=== PATIENT | female | born 1980 | race African-American/Black ===

== ENCOUNTER → 2021-01-04 | Outpatient (CLI) | payer MEDICARE ==
[~2021-01-04] MED LIST: ACYCLOVIR800 MG PO; GEODON80 MG PO; LISINOPRIL-HCT1 EAC2 PO; METFORMIN HCL500 MG PO; MIRTAZAPINE15 MG PO; MONTELUKAST SOD10 MG PO; MULTI-VITAMIN1 EACH PO; NEURONTIN400 MG PO; OXCARBAZEPINE150 MG PO; PRILOSEC OTC20 MG PO; PROPRANOLOL HCL10 MG PO; SULINDAC200 MG PO; TRICOR145 MG PO; VENTOLIN HFA18 GM INH; VITAMIN D PO; ZYRTEC10 M3 PO
[2021-01-04 09:13] LABS: BASOPHILS % 0.5 % (0.0-1.0); EOSINOPHILS # (AUTO) 0.3 (0.0-0.4); EOSINOPHILS % 2.9 % (0.0-6.0); HEMATOCRIT 39.4 % (34.2-44.1); HEMOGLOBIN 12.8 g/dL (12.0-16.0); LYMPHOCYTES # (AUTO) 2.3 (1.0-3.2); MEAN CORPUSCULAR HEMOGLOBIN 28.8 pg (28-32); MEAN CORPUSCULAR HGB CONC 32.5 g/dL (31-35); MEAN CORPUSCULAR VOLUME 88.5 fL (81-99); MONOCYTES # (AUTO) 0.9 (0.2-0.8); MONOCYTES % 10.5 % (4.4-11.3); NEUTROPHILS % 58.5 % (38.7-80.0); PLATELET COUNT 349 x10e3/uL (140-360); RED BLOOD COUNT 4.45 x10e6/uL (3.6-5.1); RED CELL DISTRIBUTION WIDTH 14.6 % (11.7-14.4)
[2021-01-04 09:33] LABS: ANION GAP 14.8 mmol/L (8-16); BLOOD UREA NITROGEN 10 mg/dL (7-26); BUN/CREATININE RATIO 11 (6-25); CALCIUM 9.1 mg/dL (8.4-10.2); CARBON DIOXIDE 24 mmol/L (22-29); CHLORIDE 106 mmol/L (98-107); CREATININE, SERUM 0.89 mg/dL (0.57-1.11); EST GLOMERULAR FILTRATION RATE > 60 ML/MIN (60-); GLUCOSE 101 mg/dL (74-118); POTASSIUM 3.8 mmol/L (3.5-5.1); SODIUM 141 mmol/L (136-145)
== END ==
LOC: DX 16:00 → EDSTATUS 01-08 09:00
PROVIDERS: ATTEND Surgery
DX: Z01.812 Encounter for preprocedural laboratory examination (principal); Z20.822 Contact with and (suspected) exposure to COVID-19; Z01.818 Encounter for other preprocedural examination; E66.01 Morbid (severe) obesity due to excess calories; Z68.44 Body mass index [BMI] 60.0-69.9, adult; I10 Essential (primary) hypertension
CPT/HCPCS: 36415; 80048; 85025; 93005; U0002

== ENCOUNTER 2021-02-12 10:01 | Inpatient (IN) | payer MEDICARE ==
[2021-02-08 09:16] LABS: BASOPHILS % 0.4 % (0.0-1.0); EOSINOPHILS # (AUTO) 0.1 (0.0-0.4); EOSINOPHILS % 0.6 % (0.0-6.0); HEMATOCRIT 40.6 % (34.2-44.1); LYMPHOCYTES # (AUTO) 3.4 (1.0-3.2); LYMPHOCYTES % 31.2 % (18.0-39.1); MEAN CORPUSCULAR HEMOGLOBIN 28.9 pg (28-32); MEAN CORPUSCULAR VOLUME 90.2 fL (81-99); MONOCYTES # (AUTO) 1.1 (0.2-0.8); MONOCYTES % 9.8 % (4.4-11.3); NEUTROPHILS # (AUTO) 6.3 (2.1-6.9); NEUTROPHILS % 57.2 % (38.7-80.0); PLATELET COUNT 286 x10e3/uL (140-360); RED CELL DISTRIBUTION WIDTH 15.3 % (11.7-14.4)
[2021-02-08 09:36] LABS: ANION GAP 14.9 mmol/L (8-16); BLOOD UREA NITROGEN 22 mg/dL (7-26); BUN/CREATININE RATIO 24 (6-25); CALCIUM 9.1 mg/dL (8.4-10.2); CARBON DIOXIDE 28 mmol/L (22-29); CHLORIDE 102 mmol/L (98-107); CREATININE, SERUM 0.93 mg/dL (0.57-1.11); EST GLOMERULAR FILTRATION RATE > 60 ML/MIN (60-); GLUCOSE 103 mg/dL (74-118); POTASSIUM 3.9 mmol/L (3.5-5.1); SODIUM 141 mmol/L (136-145)
[~2021-02-12] VITALS: Ht 152.4 cm; Wt 138.8 kg
[~2021-02-12 10:01] MED LIST changes: +ACETAMINOPHEN 1000 MG/100 ML 100 ML IV ONE; +LIDOCAINE HCL (LTA) 4 ML SOLN ONE; +SCOPOLAMINE 1.5 MG PATCH ONE; +SUGAMMADEX SODIUM 200 MG/2 ML VIAL IV ONE
[2021-02-12] MEDS ORDERED: BUPIVACAINE 0.25% 30ML SDV ONE (10:37)
[2021-02-12] MEDS ORDERED: LEVOFLOXACIN 500MG/D5W 100ML 100 ML IV ONE (10:50)
[2021-02-12] MEDS ORDERED: ROCURONIUM BROMIDE 10 MG/ML 5ML VIAL IV ONE (13:10)
[2021-02-12] MEDS ORDERED: SEVOFLURANE INHAL SOLN 250 ML PEN BTL ONE (13:10)
[2021-02-12] MEDS ORDERED: LIDOCAINE HCL 2% LOCAL INJ 5 ML SDV VIAL INJ ONE (13:10)
[2021-02-12] MEDS ORDERED: ONDANSETRON HCL INJ 2MG/ML 2ML 2 MG/ML VIAL ONE ×2 (13:10→15:26)
[2021-02-12] MEDS ORDERED: LIDOCAINE HCL 2% JELLY 5 ML TUBE ONE (13:10)
[2021-02-12] MEDS ORDERED: PROPOFOL IV EMULSION 10 MG/ML 20 ML VIAL ONE (13:10)
[2021-02-12] MEDS ORDERED: FIBRIN FROZEN 2 ML SPRAY.GEL TOP ONE (14:38)
[2021-02-12] MEDS: SODIUM CHLORIDE 0.9% 1000ML 1,000 ML IV SCH ×2 (15:30→19:57)
[2021-02-12] MEDS ORDERED: HYDROCODONE/APAP 7.5MG-325MG 1 EA TAB PO PRN (15:30)
[2021-02-12] MEDS ORDERED: METOCLOPRAMIDE HCL 10 MG/2ML VIAL ONE (15:55)
[2021-02-12] MEDS: ALBUTEROL/IPRATROPIUM 3 ML NEB NEB SCH ×2 (17:15→21:45)
[2021-02-12] MEDS ORDERED: AZITHROMYCIN 500MG/NS 250 ML 250 ML IV ONE (17:30)
[2021-02-12] MEDS ORDERED: FENTANYL CITRATE/PF 100MCG/2 ML INJ ONE (17:33)
[2021-02-12] MEDS ORDERED: PROMETHAZINE HCL (IM) 25 MG/ML VIAL IM ONE (18:01)
[2021-02-12 18:52] VITALS: BP 124/71
[2021-02-12] MEDS: MORPHINE SULFATE INJ 2 MG/ML SYR IV PRN (19:57)
[2021-02-12] MEDS: ONDANSETRON HCL INJ 2MG/ML 2ML 2 MG/ML VIAL IV PRN (19:57)
[2021-02-12 20:00] VITALS: BP 118/78
[2021-02-12 21:08] VITALS: BP 118/78
[2021-02-12 22:12] VITALS: BP 118/78
[2021-02-12] MEDS: ENOXAPARIN SOD INJ 40 MG/0.4 ML SYR SC SCH (22:49)
[2021-02-13] VITALS: BP 128/91
[2021-02-13] MEDS: MORPHINE SULFATE INJ 2 MG/ML SYR IV PRN ×3 (02:03→08:52)
[2021-02-13] MEDS: ONDANSETRON HCL INJ 2MG/ML 2ML 2 MG/ML VIAL IV PRN (02:03)
[2021-02-13] MEDS: ALBUTEROL/IPRATROPIUM 3 ML NEB NEB SCH ×3 (02:30→14:01)
[2021-02-13 04:00] VITALS: BP 137/82
[2021-02-13] MEDS: SODIUM CHLORIDE 0.9% 1000ML 1,000 ML IV SCH (06:24)
[2021-02-13] MEDS ORDERED: PROMETHAZINE 12.5MG/ NACL 0.9% 12.5 MG/50 ML BAG IV PRN ×2 (06:45→12:00)
[2021-02-13 07:06] LABS: BASOPHILS % 0.1 % (0.0-1.0); EOSINOPHILS # (AUTO) 0.1 (0.0-0.4); EOSINOPHILS % 0.5 % (0.0-6.0); HEMATOCRIT 39.2 % (34.2-44.1); HEMOGLOBIN 12.6 g/dL (12.0-16.0); LYMPHOCYTES # (AUTO) 1.4 (1.0-3.2); LYMPHOCYTES % 14.7 % (18.0-39.1); MEAN CORPUSCULAR HEMOGLOBIN 29.7 pg (28-32); MEAN CORPUSCULAR HGB CONC 32.1 g/dL (31-35); MEAN CORPUSCULAR VOLUME 92.5 fL (81-99); MONOCYTES # (AUTO) 1.1 (0.2-0.8); MONOCYTES % 11.5 % (4.4-11.3); NEUTROPHILS # (AUTO) 6.8 (2.1-6.9); NEUTROPHILS % 72.8 % (38.7-80.0); PLATELET COUNT 241 x10e3/uL (140-360); RED BLOOD COUNT 4.24 x10e6/uL (3.6-5.1)
[2021-02-13 07:25] LABS: ALANINE AMINOTRANSFERASE 46 IU/L (0-55); ALBUMIN 3.4 g/dL (3.5-5.0); ALBUMIN/GLOBULIN RATIO 0.9 (0.8-2.0); ALKALINE PHOSPHATASE 39 IU/L (40-150); ANION GAP 13.8 mmol/L (8-16); BLOOD UREA NITROGEN 10 mg/dL (7-26); BUN/CREATININE RATIO 12 (6-25); CARBON DIOXIDE 23 mmol/L (22-29); CHLORIDE 106 mmol/L (98-107); CREATININE, SERUM 0.83 mg/dL (0.57-1.11); EST GLOMERULAR FILTRATION RATE > 60 ML/MIN (60-); GLUCOSE 118 mg/dL (74-118); MAGNESIUM 1.7 MG/DL (1.3-2.1); PHOSPHORUS 2.6 MG/DL (2.3-4.7); POTASSIUM 3.8 mmol/L (3.5-5.1); SODIUM 139 mmol/L (136-145)
[2021-02-13] MEDS ORDERED: TYLENOL # 31 EA PO (08:07)
[2021-02-13] MEDS ORDERED: ALBUTEROL SULFATE HFA 8GM INHALATION AEROSOL INH PRN (08:15)
[2021-02-13 08:31] VITALS: BP_SYST 113; BP_SYST 121; BP_DIAS 61; BP_DIAS 80
[2021-02-13 08:42] VITALS: BP 113/61
[2021-02-13] MEDS ORDERED: CHOLECALCIFEROL 1,000 UNIT TAB PO SCH (09:00)
[2021-02-13] MEDS ORDERED: LORATADINE 10 MG TAB PO SCH (09:00)
[2021-02-13] MEDS ORDERED: GABAPENTIN 300 MG CAP PO SCH (09:00)
[2021-02-13] MEDS ORDERED: PROPRANOLOL HCL 40 MG TAB PO SCH (09:00)
[2021-02-13] MEDS ORDERED: OXCARBAZEPINE 300 MG TAB PO SCH (09:00)
[2021-02-13] MEDS ORDERED: PANTOPRAZOLE SOD 40 MG TABEC PO SCH (09:00)
[2021-02-13] MEDS ORDERED: MULTIVITAMINS/MINERALS TAB PO SCH (09:00)
[2021-02-13] MEDS ORDERED: LISINOPRIL 10 MG TAB PO SCH (09:00)
[2021-02-13] MEDS ORDERED: METFORMIN HCL 500 MG TAB PO SCH (09:00)
[2021-02-13] MEDS ORDERED: MONTELUKAST SODIUM 10 MG TAB PO SCH (09:00)
[2021-02-13] MEDS ORDERED: ZIPRASIDONE 20 MG CAP PO SCH (09:30)
[2021-02-13] MEDS ORDERED: ONDANSETRON HCL 4 MG ORAL DISINTEGRATING TAB PO PRN (10:00)
[2021-02-13] MEDS: ENOXAPARIN SOD INJ 40 MG/0.4 ML SYR SC SCH (10:43)
[2021-02-13 11:48] VITALS: BP 134/88
[2021-02-13] MEDS ORDERED: FENOFIBRATE 160 MG TAB PO SCH (21:00)
[2021-02-13] MEDS ORDERED: MIRTAZAPINE 15 MG TAB PO SCH (21:00)
== END 2021-02-13 15:50 | disposition home or self-care (01) | DRG 621 ==
LOC: OR 10:01 → PACU V 15:32 → IMCU 18:46
PROVIDERS: ADMIT Internal Medicine; ATTEND Internal Medicine
PROC: 0DB64Z3 Excision of Stomach, Percutaneous Endoscopic Approach, Vertical (ICD-10-PCS; principal; 2021-02-12 12:30)
DX: E66.01 Morbid (severe) obesity due to excess calories (principal); E11.9 Type 2 diabetes mellitus without complications; Z68.44 Body mass index [BMI] 60.0-69.9, adult; F31.9 Bipolar disorder, unspecified; F41.8 Other specified anxiety disorders; I11.9 Hypertensive heart disease without heart failure; J45.909 Unspecified asthma, uncomplicated; R11.0 Nausea; Z20.822 Contact with and (suspected) exposure to COVID-19; G47.33 Obstructive sleep apnea (adult) (pediatric); K21.9 Gastro-esophageal reflux disease without esophagitis
CPT/HCPCS: 36415; 71045; 80048; 80053; 81025; 82948; 83735; 84100; 85025; 94640; 96360; J1650; J1956; J2001; J2270; J2405; J2550; J2765; J3010; J7030; U0002

== ENCOUNTER 2022-06-24 07:17 | Inpatient (IN) | payer MEDICARE ==
[2022-06-20 09:35] LABS: BASOPHILS % 0.5 % (0.0-1.0); EOSINOPHILS # (AUTO) 0.1 (0.0-0.4); EOSINOPHILS % 1.2 % (0.0-6.0); HEMATOCRIT 39.7 % (34.2-44.1); LYMPHOCYTES # (AUTO) 2.2 (1.0-3.2); LYMPHOCYTES % 27.6 % (18.0-39.1); MEAN CORPUSCULAR HEMOGLOBIN 30.7 pg (28-32); MEAN CORPUSCULAR HGB CONC 32.7 g/dL (31-35); MEAN CORPUSCULAR VOLUME 93.9 fL (81-99); MONOCYTES # (AUTO) 0.7 (0.2-0.8); NEUTROPHILS # (AUTO) 4.8 (2.1-6.9); NEUTROPHILS % 61.4 % (38.7-80.0); PLATELET COUNT 349 x10e3/uL (140-360); RED BLOOD COUNT 4.23 x10e6/uL (3.6-5.1); RED CELL DISTRIBUTION WIDTH 14.1 % (11.7-14.4)
[2022-06-20 09:53] LABS: ANION GAP 12.8 mmol/L (8-16); CALCIUM 9.3 mg/dL (8.4-10.2); CREATININE, SERUM 0.86 mg/dL (0.57-1.11); POTASSIUM 3.8 mmol/L (3.5-5.1)
[~2022-06-24] VITALS: Ht 149.9 cm; Wt 111.6 kg
[~2022-06-24 07:17] MED LIST changes: -ACETAMINOPHEN 1000 MG/100 ML 100 ML IV ONE; +ACYCLOVIR200 MG PO; +BACLOFEN10 MG PO; +IRON PO; +LEVOFLOXACIN 500MG/D5W 100ML 100 ML IV ONE; -LIDOCAINE HCL (LTA) 4 ML SOLN ONE; -SCOPOLAMINE 1.5 MG PATCH ONE; -SUGAMMADEX SODIUM 200 MG/2 ML VIAL IV ONE; +SYMBICORT 80-10.2 GM INH; +TYLENOL # 31 EA PO; +VIT B12 PO
[2022-06-24] MEDS ORDERED: BUPIVACAINE HCL 0.25% 10ML MPF VIAL INJ ONE ×2 (08:04)
[2022-06-24] MEDS ORDERED: HYDROCODONE/APAP 7.5MG-325MG 1 EA TAB PO PRN (09:00)
[2022-06-24] MEDS ORDERED: FIBRIN FROZEN 2 ML SPRAY.GEL TOP ONE (09:00)
[2022-06-24] MEDS ORDERED: ONDANSETRON HCL INJ 2MG/ML 2ML 2 MG/ML VIAL IV PRN (09:00)
[2022-06-24] MEDS ORDERED: FENTANYL CITRATE/PF 100MCG/2 ML INJ ONE (11:17)
[2022-06-24] MEDS ORDERED: ONDANSETRON HCL INJ 2MG/ML 2ML 2 MG/ML VIAL ONE ×2 (11:17→13:12)
[2022-06-24] MEDS ORDERED: METOCLOPRAMIDE HCL 10 MG/2ML VIAL ONE (11:39)
[2022-06-24] MEDS ORDERED: PROMETHAZINE HCL (IM) 25 MG/ML VIAL IM ONE (11:39)
[2022-06-24] MEDS ORDERED: Morphine 2mg Syringe 2 MG/ML SYR ONE (11:40)
[2022-06-24] MEDS: SCOPOLAMINE 1 MG PATCH TOP SCH (12:09)
[2022-06-24] MEDS: SODIUM CHLORIDE 0.9% 1000ML 1,000 ML IV SCH ×2 (12:09→19:21)
[2022-06-24 12:13] VITALS: BP 112/71
[2022-06-24 12:18] VITALS: BP 112/71
[2022-06-24 12:25] VITALS: BP 112/71
[2022-06-24] MEDS ORDERED: ALBUTEROL SULFATE HFA 8GM INHALATION AEROSOL INH PRN (12:45)
[2022-06-24] MEDS ORDERED: FERROUS SULFAT325 MG PO (12:49)
[2022-06-24] MEDS ORDERED: LIDOCAINE HCL 2% LOCAL INJ 5 ML SDV VIAL INJ ONE (13:12)
[2022-06-24] MEDS ORDERED: DEXAMETHASONE SOD PHOS INJ 4 MG/ML SDV ONE (13:12)
[2022-06-24] MEDS ORDERED: POVIDONE IODINE 0.05% 0.05 % ML PO ONE (13:12)
[2022-06-24] MEDS ORDERED: GLYCOPYRROLATE INJ 0.2 MG/ML VIAL ONE (13:12)
[2022-06-24] MEDS ORDERED: ROCURONIUM BROMIDE 10 MG/ML 5ML VIAL IV ONE (13:12)
[2022-06-24] MEDS ORDERED: SEVOFLURANE INHAL SOLN 250 ML PEN BTL ONE (13:12)
[2022-06-24] MEDS ORDERED: PROPOFOL IV EMULSION 10 MG/ML 20 ML VIAL ONE (13:12)
[2022-06-24] MEDS ORDERED: NEOSTIGMINE 1 MG/ML 10ML VIAL ONE (13:12)
[2022-06-24] MEDS: BACLOFEN 10 MG TAB PO SCH ×3 (13:22→22:55)
[2022-06-24] MEDS: ACYCLOVIR 200 MG CAP PO SCH ×2 (13:22→22:57)
[2022-06-24] MEDS: GABAPENTIN 300 MG CAP PO SCH ×2 (13:22→22:57)
[2022-06-24] MEDS ORDERED: TRAMADOL HCL 50 MG TAB PO PRN (13:30)
[2022-06-24] MEDS: Morphine 2mg Syringe 2 MG/ML SYR IV PRN ×3 (13:59→22:52)
[2022-06-24 15:13] VITALS: BP 120/73
[2022-06-24] MEDS: ZIPRASIDONE 20 MG CAP PO SCH (16:08)
[2022-06-24] MEDS: OXCARBAZEPINE 300 MG TAB PO SCH (16:09)
[2022-06-24] MEDS ORDERED: PROPRANOLOL HCL 40 MG TAB PO SCH (17:00)
[2022-06-24] MEDS ORDERED: ZIPRASIDONE HCL 80 MG PO SCH (17:00)
[2022-06-24] MEDS: ONDANSETRON HCL INJ 2MG/ML 2ML 2 MG/ML VIAL IV PRN (18:51)
[2022-06-24] MEDS: BUDESONIDE/FORMOTEROL FUMARATE 80/4.5MCG 6.9 GM INH AEROSOL IH SCH (19:00)
[2022-06-24 20:00] VITALS: BP 123/78
[2022-06-24] MEDS: PROPRANOLOL HCL 40 MG TAB PO SCH (22:51)
[2022-06-24] MEDS: FENOFIBRATE 145 MG TAB PO SCH (22:55)
[2022-06-24] MEDS: ENOXAPARIN SOD INJ 40 MG/0.4 ML SYR SC SCH (22:58)
[2022-06-24] MEDS: MIRTAZAPINE 15 MG TAB PO SCH (22:59)
[2022-06-25] VITALS (7 sets, daily range): BP systolic 111–135; BP diastolic 59–89
[2022-06-25] MEDS: ONDANSETRON HCL INJ 2MG/ML 2ML 2 MG/ML VIAL IV PRN ×2 (02:43→07:54)
[2022-06-25] MEDS: Morphine 2mg Syringe 2 MG/ML SYR IV PRN ×2 (02:43→07:54)
[2022-06-25] MEDS: SODIUM CHLORIDE 0.9% 1000ML 1,000 ML IV SCH ×3 (02:44→21:00)
[2022-06-25 06:12] LABS: BASOPHILS % 0.3 % (0.0-1.0); EOSINOPHILS # (AUTO) 0.1 (0.0-0.4); EOSINOPHILS % 0.8 % (0.0-6.0); HEMATOCRIT 38.6 % (34.2-44.1); HEMOGLOBIN 12.6 g/dL (12.0-16.0); LYMPHOCYTES # (AUTO) 2.3 (1.0-3.2); LYMPHOCYTES % 21.7 % (18.0-39.1); MEAN CORPUSCULAR HEMOGLOBIN 30.3 pg (28-32); MEAN CORPUSCULAR HGB CONC 32.6 g/dL (31-35); MEAN CORPUSCULAR VOLUME 92.8 fL (81-99); MONOCYTES # (AUTO) 1.1 (0.2-0.8); MONOCYTES % 10.1 % (4.4-11.3); NEUTROPHILS # (AUTO) 7.1 (2.1-6.9); NEUTROPHILS % 66.9 % (38.7-80.0); PLATELET COUNT 324 x10e3/uL (140-360); RED BLOOD COUNT 4.16 x10e6/uL (3.6-5.1); RED CELL DISTRIBUTION WIDTH 13.7 % (11.7-14.4)
[2022-06-25] MEDS: PANTOPRAZOLE SOD 40 MG TABEC PO SCH (06:29)
[2022-06-25] MEDS: BUDESONIDE/FORMOTEROL FUMARATE 80/4.5MCG 6.9 GM INH AEROSOL IH SCH ×2 (07:00→19:25)
[2022-06-25 07:03] LABS: ALBUMIN/GLOBULIN RATIO 0.9 (0.8-2.0); CALCIUM 8.2 mg/dL (8.4-10.2); CREATININE, SERUM 0.74 mg/dL (0.57-1.11); MAGNESIUM 1.6 MG/DL (1.3-2.1); PHOSPHORUS 2.9 MG/DL (2.3-4.7)
[2022-06-25] MEDS: LEVALBUTEROL HCL SOLN NEBU 0.63 MG/3 ML NEB INH SCH ×3 (07:30→19:25)
[2022-06-25] MEDS ORDERED: POTASSIUM CHLORIDE 10MEQ EA PO ONE ×2 (07:45→09:45)
[2022-06-25] MEDS ORDERED: ACETAMINOPHEN 325 MG TAB PO PRN (08:30)
[2022-06-25] MEDS: OXCARBAZEPINE 300 MG TAB PO SCH ×2 (09:00→16:39)
[2022-06-25] MEDS: GABAPENTIN 300 MG CAP PO SCH ×3 (09:00→21:00)
[2022-06-25] MEDS: LORATADINE 10 MG TAB PO SCH (09:00)
[2022-06-25] MEDS: PROPRANOLOL HCL 40 MG TAB PO SCH ×2 (09:00→21:00)
[2022-06-25] MEDS ORDERED: METOCLOPRAMIDE HCL 10 MG/2ML VIAL IV ONE (09:00)
[2022-06-25] MEDS: ACYCLOVIR 200 MG CAP PO SCH ×3 (09:00→21:00)
[2022-06-25] MEDS: CHOLECALCIFEROL 1,000 UNIT TAB PO SCH (09:00)
[2022-06-25] MEDS: HYDROCHLOROTHIAZIDE 25 MG TAB PO SCH (09:00)
[2022-06-25] MEDS: BACLOFEN 10 MG TAB PO SCH ×4 (09:00→21:00)
[2022-06-25] MEDS: MONTELUKAST SODIUM 10 MG TAB PO SCH (09:00)
[2022-06-25] MEDS: MULTIVITAMINS/MINERALS TAB PO SCH (09:00)
[2022-06-25] MEDS: FERROUS SULFATE 325 MG TAB PO SCH (09:00)
[2022-06-25] MEDS ORDERED: NON-FORMULARY MEDICATION (Omeprazole Magnesium (Prilosec Otc) 40 MG) PO SCH (09:00)
[2022-06-25] MEDS ORDERED: NON-FORMULARY MEDICATION ([Vitamin D] 2,000 UNITS) PO SCH (09:00)
[2022-06-25] MEDS: LISINOPRIL 10 MG TAB PO SCH (09:00)
[2022-06-25] MEDS: ZIPRASIDONE 20 MG CAP PO SCH ×2 (09:00→16:37)
[2022-06-25] MEDS: ENOXAPARIN SOD INJ 40 MG/0.4 ML SYR SC SCH ×2 (09:05→16:34)
[2022-06-25] MEDS: POTASSIUM CHLORIDE 20MEQ/100ML 100 ML IV SCH ×2 (09:30→13:17)
[2022-06-25] MEDS: METOCLOPRAMIDE HCL 10 MG/2ML VIAL IV PRN ×2 (13:17→20:08)
[2022-06-25 16:29] LABS: BASOPHILS % 0.3 % (0.0-1.0); EOSINOPHILS # (AUTO) 0.1 (0.0-0.4); EOSINOPHILS % 1.3 % (0.0-6.0); HEMATOCRIT 40.9 % (34.2-44.1); HEMOGLOBIN 13.2 g/dL (12.0-16.0); LYMPHOCYTES # (AUTO) 2.1 (1.0-3.2); MEAN CORPUSCULAR HEMOGLOBIN 30.6 pg (28-32); MEAN CORPUSCULAR HGB CONC 32.3 g/dL (31-35); MEAN CORPUSCULAR VOLUME 94.7 fL (81-99); MONOCYTES # (AUTO) 1.2 (0.2-0.8); MONOCYTES % 11.5 % (4.4-11.3); NEUTROPHILS # (AUTO) 6.9 (2.1-6.9); NEUTROPHILS % 66.6 % (38.7-80.0); PLATELET COUNT 293 x10e3/uL (140-360); RED BLOOD COUNT 4.32 x10e6/uL (3.6-5.1)
[2022-06-25] MEDS: HYDROMORPHONE 1MG/1ML INJ IV PRN ×2 (17:57→21:16)
[2022-06-25] MEDS: FENOFIBRATE 145 MG TAB PO SCH (21:00)
[2022-06-25] MEDS: MIRTAZAPINE 15 MG TAB PO SCH (21:00)
[2022-06-26] VITALS (7 sets, daily range): BP systolic 108–146; BP diastolic 71–85
[2022-06-26] MEDS: LEVALBUTEROL HCL SOLN NEBU 0.63 MG/3 ML NEB INH SCH ×5 (00:30→23:00)
[2022-06-26] MEDS: SODIUM CHLORIDE 0.9% 1000ML 1,000 ML IV SCH ×3 (00:38→17:00)
[2022-06-26] MEDS: METOCLOPRAMIDE HCL 10 MG/2ML VIAL IV PRN ×2 (02:01→08:13)
[2022-06-26] MEDS: HYDROMORPHONE 1MG/1ML INJ IV PRN (03:06)
[2022-06-26 05:04] LABS: BASOPHILS % 0.4 % (0.0-1.0); EOSINOPHILS # (AUTO) 0.1 (0.0-0.4); EOSINOPHILS % 1.2 % (0.0-6.0); HEMATOCRIT 36.7 % (34.2-44.1); LYMPHOCYTES # (AUTO) 1.9 (1.0-3.2); LYMPHOCYTES % 19.1 % (18.0-39.1); MEAN CORPUSCULAR HEMOGLOBIN 30.4 pg (28-32); MEAN CORPUSCULAR HGB CONC 32.7 g/dL (31-35); MEAN CORPUSCULAR VOLUME 92.9 fL (81-99); MONOCYTES % 10.6 % (4.4-11.3); NEUTROPHILS # (AUTO) 6.7 (2.1-6.9); NEUTROPHILS % 68.3 % (38.7-80.0); PLATELET COUNT 297 x10e3/uL (140-360); RED BLOOD COUNT 3.95 x10e6/uL (3.6-5.1); RED CELL DISTRIBUTION WIDTH 13.7 % (11.7-14.4)
[2022-06-26 05:24] LABS: ALBUMIN 2.8 g/dL (3.5-5.0); ALBUMIN/GLOBULIN RATIO 0.7 (0.8-2.0); ANION GAP 12.2 mmol/L (8-16); CALCIUM 7.9 mg/dL (8.4-10.2); CREATININE, SERUM 0.69 mg/dL (0.57-1.11); POTASSIUM 3.2 mmol/L (3.5-5.1)
[2022-06-26] MEDS: BUDESONIDE/FORMOTEROL FUMARATE 80/4.5MCG 6.9 GM INH AEROSOL IH SCH ×3 (07:00→20:40)
[2022-06-26] MEDS: PANTOPRAZOLE SOD 40 MG TABEC PO SCH (07:30)
[2022-06-26] MEDS ORDERED: PROMETHAZINE HCL 25 MG TAB PO ONE ×2 (09:00→09:30)
[2022-06-26] MEDS: GABAPENTIN 300 MG CAP PO SCH ×4 (09:00→22:37)
[2022-06-26] MEDS: LORATADINE 10 MG TAB PO SCH (09:00)
[2022-06-26] MEDS: OXCARBAZEPINE 300 MG TAB PO SCH ×2 (09:00→17:00)
[2022-06-26] MEDS: BACLOFEN 10 MG TAB PO SCH ×5 (09:00→22:32)
[2022-06-26] MEDS: CHOLECALCIFEROL 1,000 UNIT TAB PO SCH (09:00)
[2022-06-26] MEDS ORDERED: POTASSIUM CHLORIDE 10MEQ EA PO ONE ×2 (09:00→11:00)
[2022-06-26] MEDS: ENOXAPARIN SOD INJ 40 MG/0.4 ML SYR SC SCH ×2 (09:00→17:00)
[2022-06-26] MEDS: PROPRANOLOL HCL 40 MG TAB PO SCH ×3 (09:00→22:34)
[2022-06-26] MEDS: FERROUS SULFATE 325 MG TAB PO SCH (09:00)
[2022-06-26] MEDS: MONTELUKAST SODIUM 10 MG TAB PO SCH (09:00)
[2022-06-26] MEDS: MULTIVITAMINS/MINERALS TAB PO SCH (09:00)
[2022-06-26] MEDS: ZIPRASIDONE 20 MG CAP PO SCH ×2 (09:00→17:00)
[2022-06-26] MEDS: HYDROCHLOROTHIAZIDE 25 MG TAB PO SCH (09:00)
[2022-06-26] MEDS: LISINOPRIL 10 MG TAB PO SCH (09:00)
[2022-06-26] MEDS: ACYCLOVIR 200 MG CAP PO SCH ×4 (09:00→22:35)
[2022-06-26] MEDS ORDERED: METOCLOPRAMIDE HCL 10 MG/2ML VIAL IV ONE (10:30)
[2022-06-26] MEDS ORDERED: IOPAMIDOL 370 MG/ML 100 ML INFUS..BTL INJ ONE (11:40)
[2022-06-26] MEDS ORDERED: POTASSIUM CHLORIDE 20MEQ/100ML 200 ML IV ONE (12:00)
[2022-06-26] MEDS: TRAMADOL HCL 50 MG TAB PO PRN ×2 (12:18→22:35)
[2022-06-26] MEDS ORDERED: BUPIVACAINE 0.25% 30ML SDV ONE (16:45)
[2022-06-26] MEDS ORDERED: SUGAMMADEX SODIUM 200 MG/2 ML VIAL IV ONE (17:53)
[2022-06-26] MEDS ORDERED: ALBUTEROL SULF 0.083% NEB SOLN 3 ML NEB ONE (18:01)
[2022-06-26] MEDS ORDERED: FENTANYL CITRATE/PF 100MCG/2 ML INJ ONE (18:06)
[2022-06-26] MEDS ORDERED: FUROSEMIDE INJ 10 MG/ML 4 ML VIAL IV ONE (19:50)
[2022-06-26] MEDS: PROMETHAZINE 12.5MG/ NACL 0.9% 12.5 MG/50 ML BAG IV PRN (20:00)
[2022-06-26] MEDS: MIRTAZAPINE 15 MG TAB PO SCH ×2 (21:00→22:36)
[2022-06-26] MEDS: FENOFIBRATE 145 MG TAB PO SCH ×2 (21:00→22:36)
[2022-06-26] MEDS: METHYLPREDNISOLONE SOD SUCC 40 MG/ML VIAL 1ML IV SCH (22:34)
[2022-06-26] MEDS ORDERED: FAMOTIDINE 20 MG/2 ML VIAL IV STA (23:32)
[2022-06-26] MEDS ORDERED: FAMOTIDINE 20 MG/2 ML VIAL IV ONE (23:48)
[2022-06-27] VITALS: BP 124/79
[2022-06-27] MEDS: LEVALBUTEROL HCL SOLN NEBU 0.63 MG/3 ML NEB INH SCH ×5 (00:05→14:22)
[2022-06-27] MEDS: METHYLPREDNISOLONE SOD SUCC 40 MG/ML VIAL 1ML IV SCH ×4 (00:07→18:18)
[2022-06-27] MEDS: PROMETHAZINE 12.5MG/ NACL 0.9% 12.5 MG/50 ML BAG IV PRN (01:15)
[2022-06-27 04:00] VITALS: BP 143/94
[2022-06-27 04:52] LABS: BASOPHILS % 0.2 % (0.0-1.0); HEMATOCRIT 36.3 % (34.2-44.1); HEMOGLOBIN 12.2 g/dL (12.0-16.0); LYMPHOCYTES # (AUTO) 0.4 (1.0-3.2); LYMPHOCYTES % 3.5 % (18.0-39.1); MEAN CORPUSCULAR HGB CONC 33.6 g/dL (31-35); MEAN CORPUSCULAR VOLUME 89.2 fL (81-99); MONOCYTES # (AUTO) 0.3 (0.2-0.8); NEUTROPHILS # (AUTO) 11.5 (2.1-6.9); NEUTROPHILS % 93.7 % (38.7-80.0); PLATELET COUNT 307 x10e3/uL (140-360); RED BLOOD COUNT 4.07 x10e6/uL (3.6-5.1); RED CELL DISTRIBUTION WIDTH 13.8 % (11.7-14.4)
[2022-06-27] MEDS: SODIUM CHLORIDE 0.9% 1000ML 1,000 ML IV SCH ×2 (05:04→18:24)
[2022-06-27 05:21] LABS: ALANINE AMINOTRANSFERASE 44 IU/L (0-55); ALBUMIN/GLOBULIN RATIO 0.8 (0.8-2.0); ALKALINE PHOSPHATASE 34 IU/L (40-150); ANION GAP 16.1 mmol/L (8-16); BLOOD UREA NITROGEN < 5 mg/dL (7-26); CALCIUM 8.1 mg/dL (8.4-10.2); CARBON DIOXIDE 25 mmol/L (22-29); CHLORIDE 99 mmol/L (98-107); GLUCOSE 145 mg/dL (74-118); POTASSIUM 3.1 mmol/L (3.5-5.1); SODIUM 137 mmol/L (136-145)
[2022-06-27 05:23] LABS: BUN/CREATININE RATIO 7 (6-25)
[2022-06-27] MEDS: TRAMADOL HCL 50 MG TAB PO PRN (06:24)
[2022-06-27] MEDS: BUDESONIDE/FORMOTEROL FUMARATE 80/4.5MCG 6.9 GM INH AEROSOL IH SCH (06:39)
[2022-06-27] MEDS: PANTOPRAZOLE SOD 40 MG TABEC PO SCH (07:30)
[2022-06-27 07:59] VITALS: BP 132/88
[2022-06-27] MEDS ORDERED: POTASSIUM CHLORIDE 20MEQ/100ML 200 ML IV ONE (08:00)
[2022-06-27] MEDS: LISINOPRIL 10 MG TAB PO SCH (08:43)
[2022-06-27] MEDS: BACLOFEN 10 MG TAB PO SCH ×3 (08:43→18:00)
[2022-06-27] MEDS: GABAPENTIN 300 MG CAP PO SCH ×2 (08:43→15:00)
[2022-06-27] MEDS: LORATADINE 10 MG TAB PO SCH (08:43)
[2022-06-27] MEDS: ZIPRASIDONE 20 MG CAP PO SCH ×2 (08:43→17:00)
[2022-06-27] MEDS: FERROUS SULFATE 325 MG TAB PO SCH (08:43)
[2022-06-27] MEDS: MULTIVITAMINS/MINERALS TAB PO SCH (08:43)
[2022-06-27] MEDS: PROPRANOLOL HCL 40 MG TAB PO SCH (08:43)
[2022-06-27] MEDS: ACYCLOVIR 200 MG CAP PO SCH ×2 (08:44→15:00)
[2022-06-27] MEDS: CHOLECALCIFEROL 1,000 UNIT TAB PO SCH (08:44)
[2022-06-27] MEDS: OXCARBAZEPINE 300 MG TAB PO SCH ×2 (08:44→17:00)
[2022-06-27] MEDS: MONTELUKAST SODIUM 10 MG TAB PO SCH (08:44)
[2022-06-27 08:45] VITALS: BP 132/88
[2022-06-27] MEDS: ENOXAPARIN SOD INJ 40 MG/0.4 ML SYR SC SCH ×2 (09:40→17:53)
[2022-06-27 11:49] VITALS: BP 125/62
[2022-06-27] MEDS: SCOPOLAMINE 1 MG PATCH TOP SCH (14:04)
[2022-06-27 16:56] VITALS: BP 124/77
[2022-06-27] MEDS ORDERED: SODIUM CHLORIDE 0.9% 250ML 250 ML ONE (17:35)
== END 2022-06-27 18:58 | disposition home or self-care (01) | DRG 619 ==
LOC: OR 07:17 → PACU V 10:53 → MED/SURG 11:58 → UNDODISIN 06-25 12:00
PROVIDERS: ADMIT Internal Medicine; ATTEND Internal Medicine
PROC: 0DB64Z3 Excision of Stomach, Percutaneous Endoscopic Approach, Vertical (ICD-10-PCS; principal; 2022-06-24 08:54)
PROC: 0WUF4JZ Supplement Abdominal Wall with Synthetic Substitute, Percutaneous Endoscopic Approach (ICD-10-PCS; 2022-06-25)
PROC: 02HV33Z Insertion of Infusion Device into Superior Vena Cava, Percutaneous Approach (ICD-10-PCS; 2022-06-25)
DX: E66.01 Morbid (severe) obesity due to excess calories (principal); J18.9 Pneumonia, unspecified organism; K43.6 Other and unspecified ventral hernia with obstruction, without gangrene; Z68.43 Body mass index [BMI] 50.0-59.9, adult; J20.9 Acute bronchitis, unspecified; J45.909 Unspecified asthma, uncomplicated; I11.9 Hypertensive heart disease without heart failure; Z20.822 Contact with and (suspected) exposure to COVID-19; Z79.51 Long term (current) use of inhaled steroids; F31.9 Bipolar disorder, unspecified; Q05.9 Spina bifida, unspecified; Z87.891 Personal history of nicotine dependence; Z88.5 Allergy status to narcotic agent; Z91.018 Allergy to other foods; Z88.0 Allergy status to penicillin; Z98.84 Bariatric surgery status; E11.9 Type 2 diabetes mellitus without complications; E87.6 Hypokalemia
CPT/HCPCS: 0223U; 36415; 71045; 74177; 80048; 80053; 81025; 82948; 83605; 83735; 83880; 84100; 85025; 87040; 93005; 94640; 94799; C1713; C1781; J0456; J0696; J1100; J1170; J1650; J1940; J1956; J2001; J2270; J2405; J2550; J2710; J2765; J2920; J3010; J3480; J7030; J7050; Q9967

== ENCOUNTER 2022-09-04 08:22 | Observation (INO) | payer MEDICARE ==
[~2022-09-04] VITALS: Ht 149.9 cm; Wt 104.8 kg
[~2022-09-04 08:22] MED LIST changes: +FERROUS SULFAT325 MG PO; -LEVOFLOXACIN 500MG/D5W 100ML 100 ML IV ONE
[2022-09-04] MEDS ORDERED: SODIUM CHLORIDE 0.9% 1000ML 1,000 ML IV STA (08:24)
[2022-09-04] MEDS ORDERED: ONDANSETRON HCL INJ 2MG/ML 2ML 2 MG/ML VIAL IV STA (08:24)
[2022-09-04 09:02] LABS: CLARITY,URINE CLOUDY (CLEAR); COLOR,URINE YELLOW (YELLOW)
[2022-09-04 09:03] LABS: KETONES,URINE TRACE (NEGATIVE); LEUKOCYTE ESTERASE ,URINE SMALL (NEGATIVE); NITRITE,URINE NEGATIVE (NEGATIVE); PROTEIN,URINE DIPSTICK NEGATIVE (NEGATIVE); URINE UROBILINOGEN 1 mg/dL (0.2 - 1)
[2022-09-04 09:16] LABS: BACTERIA,URINE MANY /HPF; EPITHELIAL CELLS,URINE MANY /LPF; WBC,URINE (MAN) >50 /HPF (0-5)
[2022-09-04 09:28] LABS: BASOPHILS % 0.4 % (0.0-1.0); EOSINOPHILS # (AUTO) 0.3 (0.0-0.4); EOSINOPHILS % 2.5 % (0.0-6.0); HEMATOCRIT 40.1 % (34.2-44.1); HEMOGLOBIN 12.5 g/dL (12.0-16.0); LYMPHOCYTES # (AUTO) 2.1 (1.0-3.2); LYMPHOCYTES % 20.7 % (18.0-39.1); MEAN CORPUSCULAR HEMOGLOBIN 29.6 pg (28-32); MEAN CORPUSCULAR HGB CONC 31.2 g/dL (31-35); MONOCYTES # (AUTO) 0.8 (0.2-0.8); MONOCYTES % 7.9 % (4.4-11.3); NEUTROPHILS # (AUTO) 6.9 (2.1-6.9); NEUTROPHILS % 68.2 % (38.7-80.0); PLATELET COUNT 309 x10e3/uL (140-360); RED BLOOD COUNT 4.22 x10e6/uL (3.6-5.1); RED CELL DISTRIBUTION WIDTH 13.5 % (11.7-14.4)
[2022-09-04 09:51] LABS: ALANINE AMINOTRANSFERASE 36 IU/L (0-55); ALBUMIN 3.4 g/dL (3.5-5.0); ALBUMIN/GLOBULIN RATIO 0.9 (0.8-2.0); ALKALINE PHOSPHATASE 74 IU/L (40-150); ANION GAP 14.7 mmol/L (8-16); BLOOD UREA NITROGEN 10 mg/dL (7-26); BUN/CREATININE RATIO 11 (6-25); CALCIUM 9.2 mg/dL (8.4-10.2); CARBON DIOXIDE 28 mmol/L (22-29); CHLORIDE 103 mmol/L (98-107); CREATINE KINASE 57 IU/L (29-168); CREATININE, SERUM 0.89 mg/dL (0.57-1.11); GLUCOSE 100 mg/dL (74-118); POTASSIUM 3.7 mmol/L (3.5-5.1); SODIUM 142 mmol/L (136-145)
[2022-09-04 09:52] LABS: INR 0.9
[2022-09-04 10:12] LABS: LIPASE 34 U/L (8-78)
[2022-09-04] MEDS ORDERED: Morphine 4mg INJECTION 4 MG/ML INJ IV PRN (11:00)
[2022-09-04] MEDS ORDERED: ONDANSETRON HCL INJ 2MG/ML 2ML 2 MG/ML VIAL IV PRN ×2 (11:00→22:00)
[2022-09-04] MEDS: SODIUM CHLORIDE 0.9% 1000ML 1,000 ML IV SCH ×2 (11:00→20:41)
[2022-09-04] MEDS ORDERED: IOPAMIDOL 370 MG/ML 100 ML INFUS..BTL INJ ONE ×2 (11:34→18:54)
[2022-09-04] MEDS ORDERED: DIATRIZOATE MEGL/DIATRIZOA SOD 30 ML BTL PO ONE (14:43)
[2022-09-04] MEDS ORDERED: BIOTIN PO (15:08)
[2022-09-04 16:28] VITALS: BP 135/76
[2022-09-04 16:38] VITALS: BP 135/76
[2022-09-04 20:30] VITALS: BP 110/68
[2022-09-04] MEDS ORDERED: TEMAZEPAM 7.5 MG CAP PO PRN (22:00)
[2022-09-04] MEDS ORDERED: ACETAMINOPHEN 325 MG TAB PO PRN (22:00)
[2022-09-04] MEDS ORDERED: METOPROLOL TARTRATE INJ 1 MG/ML VIAL IV PRN (22:00)
[2022-09-05] VITALS: BP 106/66
[2022-09-05 04:00] VITALS: BP 112/63
[2022-09-05] MEDS: SODIUM CHLORIDE 0.9% 1000ML 1,000 ML IV SCH ×2 (04:13→11:00)
[2022-09-05 04:47] LABS: BASOPHILS % 0.5 % (0.0-1.0); EOSINOPHILS # (AUTO) 0.2 (0.0-0.4); EOSINOPHILS % 1.9 % (0.0-6.0); HEMATOCRIT 35.1 % (34.2-44.1); LYMPHOCYTES # (AUTO) 1.9 (1.0-3.2); LYMPHOCYTES % 22.2 % (18.0-39.1); MEAN CORPUSCULAR HEMOGLOBIN 29.9 pg (28-32); MEAN CORPUSCULAR HGB CONC 31.3 g/dL (31-35); MEAN CORPUSCULAR VOLUME 95.4 fL (81-99); MONOCYTES # (AUTO) 0.8 (0.2-0.8); MONOCYTES % 9.3 % (4.4-11.3); NEUTROPHILS # (AUTO) 5.6 (2.1-6.9); NEUTROPHILS % 65.9 % (38.7-80.0); PLATELET COUNT 261 x10e3/uL (140-360); RED BLOOD COUNT 3.68 x10e6/uL (3.6-5.1); RED CELL DISTRIBUTION WIDTH 13.3 % (11.7-14.4)
[2022-09-05 05:01] LABS: PHOSPHORUS 4.2 MG/DL (2.3-4.7)
[2022-09-05 05:08] LABS: ALBUMIN 2.8 g/dL (3.5-5.0); ALBUMIN/GLOBULIN RATIO 0.8 (0.8-2.0); ANION GAP 13.5 mmol/L (8-16); CALCIUM 8.6 mg/dL (8.4-10.2); CREATININE, SERUM 0.75 mg/dL (0.57-1.11); POTASSIUM 3.5 mmol/L (3.5-5.1)
[2022-09-05 05:23] LABS: THYROID STIMULATING HORMONE 1.887 uIU/mL (0.350-4.940)
[2022-09-05] MEDS ORDERED: POTASSIUM BICARBONATE/CIT AC 20 MEQ TABLET.EFF PO ONE (06:30)
[2022-09-05] MEDS ORDERED: FAMOTIDINE 20 MG TAB PO SCH (07:30)
[2022-09-05 08:18] VITALS: BP 112/77
[2022-09-05] MEDS ORDERED: PROPRANOLOL HCL 40 MG TAB PO SCH (09:00)
[2022-09-05] MEDS ORDERED: ALBUTEROL SULFATE HFA 8GM INHALATION AEROSOL INH PRN (09:00)
[2022-09-05] MEDS ORDERED: BACLOFEN 10 MG TAB PO PRN (09:00)
[2022-09-05] MEDS ORDERED: TEMAZEPAM 15 MG CAP PO PRN (10:45)
[2022-09-05] MEDS ORDERED: ALBUTEROL SULF 0.083% NEB SOLN 3 ML NEB NEB PRN (11:00)
[2022-09-05] MEDS ORDERED: ZIPRASIDONE 20 MG CAP PO SCH (11:00)
[2022-09-05] MEDS ORDERED: HYDROCHLOROTHIAZIDE 25 MG TAB PO SCH (11:00)
[2022-09-05] MEDS ORDERED: CHOLECALCIFEROL 1,000 UNIT TAB PO SCH (11:00)
[2022-09-05] MEDS ORDERED: OMEPRAZOLE 20 MG CAP PO SCH (11:00)
[2022-09-05] MEDS: GABAPENTIN 300 MG CAP PO SCH ×2 (11:00→15:00)
[2022-09-05] MEDS ORDERED: LORATADINE 10 MG TAB PO SCH (11:00)
[2022-09-05] MEDS ORDERED: MONTELUKAST SODIUM 10 MG TAB PO SCH (11:00)
[2022-09-05] MEDS ORDERED: OXCARBAZEPINE 300 MG TAB PO SCH (11:00)
[2022-09-05] MEDS ORDERED: LISINOPRIL 10 MG TAB PO SCH (11:00)
[2022-09-05] MEDS ORDERED: CYANOCOBALAMIN 1,000 MCG TAB PO SCH (11:00)
[2022-09-05] MEDS: ACYCLOVIR 200 MG CAP PO SCH ×2 (11:00→15:00)
[2022-09-05] MEDS ORDERED: MULTIVITAMINS/MINERALS TAB PO SCH (11:00)
[2022-09-05] MEDS ORDERED: FERROUS SULFATE 325 MG TAB PO SCH (11:00)
[2022-09-05 11:40] VITALS: BP 99/63
[2022-09-05] MEDS ORDERED: CEFUROXIME250 MG PO (12:38)
[2022-09-05 14:56] VITALS: BP 99/63
[2022-09-05 15:25] VITALS: BP 108/64
[2022-09-05] MEDS ORDERED: BUDESONIDE/FORMOTEROL FUMARATE 80/4.5MCG 6.9 GM INH AEROSOL IH SCH (19:00)
[2022-09-05] MEDS ORDERED: MIRTAZAPINE 15 MG TAB PO SCH (21:00)
== END 2022-09-05 15:58 | disposition home or self-care (01) ==
LOC: ER 08:24 → ERHOLD 11:05 → MED/SURG 15:59
PROVIDERS: ADMIT Internal Medicine; ATTEND Internal Medicine
DX: K95.89 Other complications of other bariatric procedure (principal); N39.0 Urinary tract infection, site not specified; E66.01 Morbid (severe) obesity due to excess calories; Z68.43 Body mass index [BMI] 50.0-59.9, adult; K21.9 Gastro-esophageal reflux disease without esophagitis; E87.6 Hypokalemia; D86.9 Sarcoidosis, unspecified; E11.69 Type 2 diabetes mellitus with other specified complication; E78.5 Hyperlipidemia, unspecified; Z87.891 Personal history of nicotine dependence; Z91.02 Food additives allergy status; Z88.5 Allergy status to narcotic agent; Z88.0 Allergy status to penicillin; Z91.018 Allergy to other foods; F31.9 Bipolar disorder, unspecified; F41.9 Anxiety disorder, unspecified; Y83.2 Surgical operation with anastomosis, bypass or graft as the cause of abnormal reaction of the patient, or of later complication, without mention of misadventure at the time of the procedure; Z79.4 Long term (current) use of insulin; B96.89 Other specified bacterial agents as the cause of diseases classified elsewhere
CPT/HCPCS: 0223U; 36415 ×2; 36569; 71045; 74177; 80053 ×2; 81001; 82550; 82553; 83036; 83690; 83735; 84100; 84443; 84484; 84702; 85025 ×2; 85610; 85730; 87086; 93005; 99284; C9113 ×2; G0378 ×2; J0696 ×2; J2270 ×2; J2405 ×2; J7030 ×2; Q9963; Q9967

== ENCOUNTER 2024-09-23 12:09 | Emergency (ER) | payer MEDICARE ==
[~2024-09-23] VITALS: Ht 149.9 cm; Wt 124.7 kg
[~2024-09-23 12:09] MED LIST changes: +BIOTIN PO; +CEFUROXIME250 MG PO
[2024-09-23] MEDS: ONDANSETRON HCL INJ 2MG/ML 2ML 2 MG/ML VIAL IV STA (13:34)
[2024-09-23] MEDS: KETOROLAC TROMETHAMINE 30 MG/ML VIAL IV STA (13:34)
[2024-09-23] MEDS: SODIUM CHLORIDE 0.9% 1000ML 1,000 ML IV STA (13:34)
[2024-09-23 13:39] LABS: BASOPHILS % 0.2 % (0.0-1.0); EOSINOPHILS % 0.1 % (0.0-6.0); HEMATOCRIT 40.7 % (34.2-44.1); LYMPHOCYTES # (AUTO) 1.7 (1.0-3.2); LYMPHOCYTES % 13.2 % (18.0-39.1); MEAN CORPUSCULAR HGB CONC 31.9 g/dL (31-35); MEAN CORPUSCULAR VOLUME 96.9 fL (81-99); MONOCYTES # (AUTO) 1.1 (0.2-0.8); MONOCYTES % 8.4 % (4.4-11.3); NEUTROPHILS # (AUTO) 9.8 (2.1-6.9); NEUTROPHILS % 75.9 % (38.7-80.0); PLATELET COUNT 245 x10e3/uL (140-360); RED CELL DISTRIBUTION WIDTH 14.9 % (11.7-14.4); WHITE BLOOD COUNT 12.92 x10e3/uL (4.8-10.8)
[2024-09-23 14:01] LABS: ALBUMIN 3.4 g/dL (3.5-5.0); BILIRUBIN,TOTAL 0.4 mg/dL (0.2-1.2); CALCIUM 8.6 mg/dL (8.4-10.2); CREATININE, SERUM 0.85 mg/dL (0.57-1.11); INR 0.94; PARTIAL THROMBOPLASTIN TIME 21.4 seconds (23.8-35.5); TOTAL PROTEIN 6.7 g/dL (6.5-8.1)
[2024-09-23 14:09] LABS: BILIRUBIN,URINE NEGATIVE (NEGATIVE); CLARITY,URINE SL CLOUDY (CLEAR); COLOR,URINE YELLOW (YELLOW); GLUCOSE, URINE NEGATIVE (NEGATIVE); KETONES,URINE NEGATIVE (NEGATIVE); LEUKOCYTE ESTERASE ,URINE NEGATIVE (NEGATIVE); NITRITE,URINE NEGATIVE (NEGATIVE); PH,URINE 5.5 (5 - 7); PROTEIN,URINE DIPSTICK NEGATIVE (NEGATIVE); URINE UROBILINOGEN 0.2 mg/dL (0.2 - 1)
[2024-09-23 14:27] LABS: BACTERIA,URINE RARE /HPF; EPITHELIAL CELLS,URINE FEW /LPF; RBC,URINE 0-5 /HPF (0-5); WBC,URINE (MAN) 0-5 /HPF (0-5)
[2024-09-23 18:04] VITALS: PULSE 56; RESP 16; TEMP 99.1; O2SAT 100
[2024-09-23] MEDS ORDERED: METHOCARBAMOL750 MG PO (18:06)
== END 2024-09-23 18:05 | disposition home or self-care (01) ==
LOC: ER 13:12
DX: M54.50 Low back pain, unspecified (principal); R10.30 Lower abdominal pain, unspecified; M79.18 Myalgia, other site; I10 Essential (primary) hypertension; E11.9 Type 2 diabetes mellitus without complications; E03.9 Hypothyroidism, unspecified; K21.9 Gastro-esophageal reflux disease without esophagitis; J45.909 Unspecified asthma, uncomplicated; Z87.442 Personal history of urinary calculi; Z98.84 Bariatric surgery status
CPT/HCPCS: 36415; 74176; 80053; 81001; 83690; 84702; 85025; 85610; 85730; 87086; 99284; J1885; J2405; J7030